=== PATIENT | male | born 1995 | race Caucasian/White ===

== ENCOUNTER 2016-11-17 10:47 | Emergency (ER) | payer BC, MEDICAID ==
[~2016-11-17] VITALS: Ht 162.6 cm; Wt 62.0 kg
[~2016-11-17 10:47] MED LIST: METH750T2 PO; PERC5TAB12 PO
[2016-11-17 11:06] VITALS: BP 118/86; PULSE 101; RESP 16; TEMP 97.8; O2SAT 96
[2016-11-17] MEDS ORDERED: ACETAMINOPHEN 325 MG TAB PO ONE (13:00)
[2016-11-17] MEDS ORDERED: ONDANSETRON ODT 4 MG TAB PO ONE (13:00)
--- NOTE | 2016-11-17 13:10 | PD ---
HPI Chief Complaint: GI Complaint Time Seen by Provider: 11:27 Travel History International Travel<30 days: No Contact w/Intl Traveler<30days: No Traveled to known affect area: No History of Present Illness HPI 21yo M with PMH of hydrocephalus s/p TRANSACTION MANAGER shunt when he was 1 year old presents to the ED with c/o frontal headache and neck pain for 2 days. +NBNB vomiting today. Denies any fever, rash, chest pain, sob, abdominal pain, focal weakness or numbness. Pt was sent here when they called PMD for further evaluation. Pt follows with neurosurgeon Dr. Ta. [facility] Past Medical History Diminished Hearing: No Musculoskeletal: Yes (CP) Neurologic: Yes (HYDROCEPHALUS WITH MILD CP) Immunizations Current: Yes Influenza Vaccination: No Past Surgical History Neurologic Surgery: Yes (TRANSACTION MANAGER SHUNT) Other Surgery: Yes (HYDROCEPHALUS TRANSACTION MANAGER SHUNT 1994) Social History Alcohol Use: No Tobacco Use: No Substance Use: No Allergies-Medications (Allergen,Severity, Reaction): Coded Allergies: Amoxicillin (Verified Allergy, Mild, HIVES, 11/17/16) Uncoded Allergies: CARDEC (Allergy, Mild, ALTERED MENTAL STATUS, 07/13/08) Reported Meds & Prescriptions Reported Meds & Active Scripts Active Ibuprofen 600 Mg Tab 600 Mg PO Q8HR PRN Zofran Odt (Ondansetron Odt) 4 Mg Tab 4 Mg SL Q8HR PRN Review of Systems Except as stated in HPI: all other systems reviewed are Neg Physical Exam Narrative GENERAL: 21yo M not in acute distress. SKIN: Warm and dry. HEAD: Atraumatic. Normocephalic. +TTP right frontal region. EYES: Pupils equal and round. No scleral icterus. No injection or drainage. ENT: No nasal bleeding or discharge. Mucous membranes pink and moist. NECK: Trachea midline. No JVD. No nuchal rigidity. Tender diffusely. CARDIOVASCULAR: Regular rate and rhythm. No murmur appreciated. RESPIRATORY: No accessory muscle use. Clear to auscultation. Breath sounds equal bilaterally. GASTROINTESTINAL: Abdomen soft, non-tender, nondistended. Hepatic and splenic margins not palpable. MUSCULOSKELETAL: No obvious deformities. No clubbing. No cyanosis. No edema. NEUROLOGICAL: Awake and alert. No obvious cranial nerve deficits. Motor grossly within normal limits. Normal speech. PSYCHIATRIC: Appropriate mood and affect; insight and judgment normal. Data Data Last Documented VS Vital Signs Date Time Temp Pulse Resp B/P Pulse Ox O2 Delivery O2 Flow Rate FiO2 11/17/16 11:06 97.8 101 16 118/86 96 Orders Shunt Series (11/17/16 ) Ct Brain W/O Iv Contrast(Rout) (11/17/16 ) Influenzae A/B Antigen (11/17/16 11:59) Acetaminophen (Tylenol) (11/17/16 13:00) Ondansetron Odt (Zofran Odt) (11/17/16 13:00) Complete Blood Count With Diff (11/17/16 13:26) Basic Metabolic Panel (Bmp) (11/17/16 13:26) Prothrombin Time / Inr (Pt) (11/17/16 13:26) Act Partial Throm Time (Ptt) (11/17/16 13:26) Ketorolac Inj (Toradol Inj) (11/17/16 13:45) Metoclopramide Inj (Reglan Inj) (11/17/16 14:15) Sodium Chlor 0.9% 1000 Ml Inj (Ns 1000 M (11/17/16 14:15) Labs Laboratory Tests Test 11/17/16 13:50 White Blood Count 10.1 TH/MM3 Red Blood Count 5.72 MIL/MM3 Hemoglobin 16.9 GM/DL Hematocrit 49.7 % Mean Corpuscular Volume 87.0 FL Mean Corpuscular Hemoglobin 29.6 PG Mean Corpuscular Hemoglobin 34.0 % Concent Red Cell Distribution Width 11.6 % Platelet Count 262 TH/MM3 Mean Platelet Volume 7.7 FL Neutrophils (%) (Auto) 86.7 % Lymphocytes (%) (Auto) 6.0 % Monocytes (%) (Auto) 5.3 % Eosinophils (%) (Auto) 0.1 % Basophils (%) (Auto) 1.9 % Neutrophils # (Auto) 8.8 TH/MM3 Lymphocytes # (Auto) 0.6 TH/MM3 Monocytes # (Auto) 0.5 TH/MM3 Eosinophils # (Auto) 0.0 TH/MM3 Basophils # (Auto) 0.2 TH/MM3 CBC Comment DIFF FINAL Differential Comment Prothrombin Time 11.3 SEC Prothromb Time International 1.0 RATIO Ratio Activated Partial 28.2 SEC Thromboplast Time Sodium Level 141 MEQ/L Potassium Level 3.9 MEQ/L Chloride Level 104 MEQ/L Carbon Dioxide Level 26.1 MEQ/L Anion Gap 11 MEQ/L Blood Urea Nitrogen 10 MG/DL Creatinine 0.94 MG/DL Estimat Glomerular Filtration 100 ML/MIN Rate Random Glucose 139 MG/DL Calcium Level 9.2 MG/DL MDM Medical Decision Making Medical Screen Exam Complete: Yes Emergency Medical Condition: Yes Interpretation(s) Last Impressions Shunt Study (Imaging) 11/17/16 0000 Signed Impressions: Service Date/Time: Thursday, November 17, 2016 12:33 - CONCLUSION: 1. Intact shunt. Dystrophic calcification in the neck Ender Aviles MD Head CT 11/17/16 0000 Signed Impressions: Service Date/Time: Thursday, November 17, 2016 12:27 - CONCLUSION: Shunt is in good position without hydronephrosis.. Everardo Johnson MD FACR Differential Diagnosis Shunt infection vs. migraine headache vs. tension headache vs. hydrocephalus Narrative Course 21yo M with frontal headache for 2 days. Shunt series showed intact shunt. CT brain showed shunt in good position with out hydrocephalus. Discussed with neurosurgeon Dr. Ta who pt saw 6 months ago and he clear him from neurosurgery point of view. Thinks this is more tension headache and that if CT brain is negative, then he can follow up as outpatient. Labs reviewed, no leukocytosis. Pt given zofran, acetaminophen and toradol but still with headache. Will give reglan and do PO challenge. Pt able to tolerate PO. Strict return precautions given. Diagnosis Primary Impression: Tension headache Patient Instructions: General Instructions Departure Forms: Tests/Procedures Additional Instructions: Please follow up with your PMD in 3-7 days. Return to the ED if symptoms worsen. Med/Other Pt SpecificInfo: Prescription(s) given Scripts Ibuprofen 600 Mg Knr565 Mg PO Q8HR PRN (PAIN) #20 TAB Ref 0 Prov:MartinRe 11/17/16 Ondansetron Odt (Zofran Odt)4 Mg Tab4 Mg SL Q8HR PRN (Nausea/Vomiting) #7 TAB Ref 0 Prov:MarioRe 11/17/16 Disposition: 01 DISCHARGE HOME Condition: Stable MartinRe [email or web address] Nov 17, 2016 13:10
--- NOTE | 2016-11-17 13:44 | RADHPO ---
EXAM DATE/TIME: 11/17/2016 12:27 [facility] COMPARISON: CT BRAIN W/O CONTRAST, September 04, 2014, 14:09. INDICATIONS : Headache. RADIATION DOSE: 58.35 CTDIvol (mGy) MEDICAL HISTORY : Hydrocephalus. SURGICAL HISTORY : MORTGAGE ADVISOR shunt ENCOUNTER: Initial ACUITY: 2 days PAIN SCALE: 10/10 LOCATION: cranial TECHNIQUE: Multiple contiguous axial images were obtained of the head. Using automated exposure control and adj ustment of the mA and/or kV according to patient size, radiation dose was kept as low as reasonably a chievable to obtain optimal diagnostic quality images. FINDINGS: CEREBRUM: The ventricles are normal for age. No evidence of midline shift, mass lesion, hemorrhage or acute in farction. No extra-axial fluid collections are seen. POSTERIOR FOSSA: The cerebellum and brainstem are intact. The 4th ventricle is midline. The cerebellopontine angle i s unremarkable. EXTRACRANIAL: The visualized portion of the orbits is intact. SKULL: The calvaria is intact. No evidence of skull fracture. CONCLUSION: Shunt is in good position without hydronephrosis.. Everardo Johnson MD FACR on November 17, 2016 at 13:42 Board Certified Radiologist. This report was verified electronically.
[2016-11-17] MEDS ORDERED: KETOROLAC TROMETHAMINE 30 MG/ML (IVP) VIAL IV PUSH ONE (13:45)
--- NOTE | 2016-11-17 13:50 | RADHPO ---
EXAM DATE/TIME: 11/17/2016 12:33 [facility] COMPARISON: No previous studies available for comparison. INDICATIONS : Headaches, vomiting. MEDICAL HISTORY : Hydrocephalus SURGICAL HISTORY : [employer] Shunt ENCOUNTER: Initial ACUITY: 1 day PAIN SCORE: 10/10 LOCATION: Skull FINDINGS: Radiograph of the skull, neck, chest and abdomen performed to evaluate shunt patency. The shunt cath eter is seen entering the right occipital region with its tip in the region of the body of the right lateral ventricle. The catheter is continuous in its course terminating in the right upper quadrant No catheter disrupti on is identified. There is dystrophic calcification along the course of the catheter the cervical reg ion but no fracture is identified. The visualized heart, lungs and abdominal structures are intact. CONCLUSION: 1. Intact shunt. Dystrophic calcification in the neck Ender Aviles MD on November 17, 2016 at 13:45 Board Certified Radiologist. This report was verified electronically.
[2016-11-17 13:54] LABS: AUTOMATED NEUTROPHIL # 8.8 TH/MM3 (1.8-7.7); BASOPHIL # 0.2 TH/MM3 (0-0.2); BASOPHIL % 1.9 % (0.0-2.0); EOSINOPHIL % 0.1 % (0.0-4.0); HEMATOCRIT 49.7 % (39.0-51.0); HEMO FLAGS DIFF FINAL; LYMPHOCYTE # 0.6 TH/MM3 (1.0-4.8); MEAN CORPUSCULAR HEMOGLOBIN 29.6 PG (27.0-34.0); MONO % 5.3 % (0.0-8.0); NEUT % 86.7 % (16.0-70.0); PLATELET COUNT 262 TH/MM3 (150-450); RED BLOOD COUNT 5.72 MIL/MM3 (4.50-5.90); RED CELL DISTRIBUTION WIDTH 11.6 % (11.6-17.2); WHITE BLOOD COUNT 10.1 TH/MM3 (4.0-11.0)
[2016-11-17 14:03] LABS: POTASSIUM 3.9 MEQ/L (3.5-5.1)
[2016-11-17 14:06] LABS: BICARBONATE 26.1 MEQ/L (21.0-32.0)
[2016-11-17 14:07] LABS: APTT (PATIENT) 28.2 SEC (24.3-30.1); PROTHROMBIN TIME - PATIENT 11.3 SEC (9.8-11.6)
[2016-11-17] MEDS ORDERED: SODIUM CHLOR 0.9% 1000 ML INJ 1,000 ML IV ONE (14:15)
[2016-11-17] MEDS ORDERED: METOCLOPRAMIDE INJ 10 MG in SODIUM CHLORIDE 0.9% INJ 50 ML IV ONE (14:15)
[2016-11-17] MEDS ORDERED: ZOFR4TAB3 SL (14:19)
[2016-11-17] MEDS ORDERED: IBUP-232 PO (14:19)
[2016-11-17 15:38] VITALS: BP 119/84
== END 2016-11-17 15:40 | disposition home or self-care (01) ==
LOC: PHED 10:47
DX: G44.209 Tension-type headache, unspecified, not intractable (principal); M54.2 Cervicalgia; R11.10 Vomiting, unspecified; Z86.69 Personal history of other diseases of the nervous system and sense organs; Z87.39 Personal history of other diseases of the musculoskeletal system and connective tissue
CPT/HCPCS: 70250; 70450; 71010; 72040; 74000; 80048; 85025; 85610; 85730; 87804; 96365; 96375; 99284; J1885; J2765; J7030